=== PATIENT | male | born 1945 | race Caucasian/White ===

== ENCOUNTER → 2020-06-28 | Outpatient (CLI) | payer OTHER ==
[~2020-06-28] MED LIST: ATORVASTATIN CA80 MG PO; CENTRUM SILVER1 EAC1 PO; COREG6.25 MG PO; FAMOTIDINE20 MG PO; FEROSUL325 MG PO; ISOSORBIDE MONO30 MG PO; METFORMIN HCL1000 MG PO; NITROSTAT 0.40.4 MG SL; PLAVIX75 MG PO; PROTONIX40 MG PO; ST. JOSEPH ASPI81 M1 PO; VASOTEC2.5 MG PO
[2020-06-28 12:47] LABS: HEMOGLOBIN 10.9 gm/dl (14.0-17.5); RED BLOOD COUNT 3.86 M/UL (4.20-5.50); WHITE BLOOD COUNT 8.5 K/UL (4.5-11.0)
[2020-06-28 13:09] LABS: BUN/CREATININE RATIO 29 (0-10)
== END ==
LOC: LAB 11:20
PROVIDERS: Internal Medicine Interventional Cardiology
DX: I20.9 Angina pectoris, unspecified (principal); R94.39 Abnormal result of other cardiovascular function study
CPT/HCPCS: 36415; 80048; 85025; 85610; 85730; 93005

== ENCOUNTER → 2020-07-30 | Outpatient (CLI) | payer OTHER ==
[2020-07-30 07:53] LABS: HEMOGLOBIN 9.7 gm/dl (14.0-17.5); RED BLOOD COUNT 3.47 M/UL (4.20-5.50); WHITE BLOOD COUNT 7.3 K/UL (4.5-11.0)
[2020-07-30 08:05] LABS: BUN/CREATININE RATIO 21 (0-10)
== END ==
LOC: CATH 06:53
PROVIDERS: Internal Medicine Interventional Cardiology
DX: I25.118 Atherosclerotic heart disease of native coronary artery with other forms of angina pectoris (principal); I10 Essential (primary) hypertension; E78.5 Hyperlipidemia, unspecified; E11.9 Type 2 diabetes mellitus without complications; Z79.82 Long term (current) use of aspirin; Z79.84 Long term (current) use of oral hypoglycemic drugs; Z79.899 Other long term (current) drug therapy
CPT/HCPCS: 36415; 80048; 85025; 85610; 85730; 93005; 99152; 99153; C1769; C1894; J1644; J2250; J3010; J7030; Q9967

== ENCOUNTER → 2020-09-12 | Outpatient (CLI) | payer OTHER | LOC: HEART 5 15:17 | DX: Z01.811 Encounter for preprocedural respiratory examination (principal); R06.02 Shortness of breath | CPT/HCPCS: 94010 ==

== ENCOUNTER → 2020-09-13 | Outpatient (CLI) | payer OTHER | LOC: CT 08:39 → EXRD 11:00 → HEART 5 11:30 | DX: Z01.818 Encounter for other preprocedural examination (principal); I63.9 Cerebral infarction, unspecified; I65.23 Occlusion and stenosis of bilateral carotid arteries; I25.10 Atherosclerotic heart disease of native coronary artery without angina pectoris; Z86.73 Personal history of transient ischemic attack (TIA), and cerebral infarction without residual deficits; R93.89 Abnormal findings on diagnostic imaging of other specified body structures; R91.1 Solitary pulmonary nodule; J84.9 Interstitial pulmonary disease, unspecified; I70.0 Atherosclerosis of aorta; I51.9 Heart disease, unspecified; I51.7 Cardiomegaly | CPT/HCPCS: 36415; 36600; 70470; 71250; 82565; 82803; 93306; 93880; Q9967 ==

== ENCOUNTER → 2020-10-30 | Outpatient (CLI) | payer OTHER | LOC: MRI 13:22 | DX: C43.52 Malignant melanoma of skin of breast (principal); R90.82 White matter disease, unspecified | CPT/HCPCS: 36415; 70553; 82565; 84520; A9577 ==